=== PATIENT | male | born 1990 | race Caucasian/White ===

== ENCOUNTER 2018-01-03 00:39 | Emergency (ER) | payer OTHER ==
[~2018-01-03] VITALS: Ht 180.3 cm; Wt 75.0 kg
[2018-01-03 00:57] VITALS: BP 100/53; PULSE 60; RESP 16; TEMP 97.8; O2SAT 100
[2018-01-03 01:45] VITALS: BP_SYST 100; BP_SYST 94; BP_SYST 95; BP_DIAS 49; BP_DIAS 51; BP_DIAS 65
[2018-01-03] MEDS ORDERED: SODIUM CHLOR 0.9% 1000 ML INJ 1,000 ML IV ONE (01:45)
[2018-01-03] MEDS ORDERED: SODIUM CHLORIDE 0.9% FLUSH 10 ML FLUSH IVF PRN (01:45)
[2018-01-03 01:55] LABS: AUTOMATED NEUTROPHIL # 4.9 TH/MM3 (1.8-7.7); BASOPHIL % 0.4 % (0.0-2.0); EOSINOPHIL # 0.3 TH/MM3 (0-0.4); EOSINOPHIL % 3.1 % (0.0-4.0); HEMOGLOBIN 13.4 GM/DL (13.0-17.0); LYMPH % 35.4 % (9.0-44.0); LYMPHOCYTE # 3.2 TH/MM3 (1.0-4.8); MEAN CELL VOLUME 92.9 FL (80.0-100.0); MEAN CORPUSCULAR HGB CONC 34.5 % (32.0-36.0); MEAN PLATELET VOLUME 7.6 FL (7.0-11.0); MONO % 6.9 % (0.0-8.0); MONOCYTE # 0.6 TH/MM3 (0-0.9); NEUT % 54.2 % (16.0-70.0); PLATELET COUNT 262 TH/MM3 (150-450)
--- NOTE | 2018-01-03 01:58 | PD ---
HPI Chief Complaint: Syncope/Near-Syncope Time Seen by Provider: 01:17 Travel History International Travel<30 days: No Contact w/Intl Traveler<30days: No Traveled to known affect area: No History of Present Illness HPI The patient is a 27-year-old male who presents to the emergency department after syncopal episode. The patient recently had an incision and drainage of an abscess behind the left ear performed in the packing was still in place. The patient's remove the packing at home and the patient suddenly fell air going to the wound, had some pain, and then passed out according to the . The patient states he was diaphoretic and slightly nauseated. When he awakened immediately knew his surroundings. He denies any injuries during the syncopal episode. He denies any history of previous syncope. He denied any chest pain, palpitations, shortness of breath prior to the event. He denied any tongue biting or urinary incontinence. He denies any known history of arrhythmias. Symptoms are moderate. There were no alleviating factors, possibly exacerbated by acute onset of pain after packing was removed for the ear abscess. The patient is currently on clindamycin for the abscess. [facility] Past Medical History Medical History: Denies Significant Hx Diminished Hearing: No Influenza Vaccination: No Past Surgical History Surgical History: No Previous Surgery Social History Alcohol Use: Yes ([facility]) Tobacco Use: No Substance Use: No Allergies-Medications (Allergen,Severity, Reaction): Coded Allergies: No Known Allergies (Unverified , 01/03/18) Review of Systems Except as stated in HPI: all other systems reviewed are Neg HENT: No: Lightheadedness Cardiovascular: Positive: Diaphoresis, Syncope, No: Chest Pain or Discomfort, Palpitations, Irregular Rhythm, Tachycardia Respiratory: No: Shortness of Breath Gastrointestinal: Positive: Nausea, No: Vomiting, Abdominal Pain Neurologic: Positive: Syncope, No: Weakness, Dizziness, Focal Abnormalities Physical Exam Narrative GENERAL: 27-year-old male who appears his stated age and is in no acute respiratory distress. SKIN: Focused skin assessment warm/dry. HEAD: Atraumatic. Normocephalic. EYES: Pupils equal and round. Pupils are 4 mm bilateral and reactive. EOMs are intact. ENT: No nasal bleeding or discharge. Mucous membranes pink and moist. Abscess behind the left ear does reveal a small opening approximately 1 cm in length with mild surrounding induration but no visible drainage. NECK: Trachea midline. No JVD. CARDIOVASCULAR: Regular rate and rhythm. No murmur appreciated. RESPIRATORY: No accessory muscle use. Clear to auscultation. Breath sounds equal bilaterally. GASTROINTESTINAL: Abdomen soft, non-tender, nondistended. No rebound tenderness. MUSCULOSKELETAL: No obvious deformities. No clubbing. No cyanosis. No edema. NEUROLOGICAL: Awake and alert. No obvious cranial nerve deficits. Motor grossly within normal limits. Normal speech. Nonfocal. Oriented 4. Follows commands without difficulty. PSYCHIATRIC: Appropriate mood and affect; insight and judgment normal. Data Data Last Documented VS Vital Signs Date Time Temp Pulse Resp B/P (MAP) Pulse Ox O2 Delivery O2 Flow Rate FiO2 01/03/18 01:45 52 94/49 (64) 56 95/51 (66) 56 100/65 (77) 01/03/18 00:57 97.8 16 100 Orders Orders Electrocardiogram (01/03/18 01:35) Complete Blood Count With Diff (01/03/18 01:35) Comprehensive Metabolic Panel (01/03/18 01:35) Magnesium (Mg) (01/03/18 01:35) Ecg Monitoring (01/03/18 01:35) Iv Access Insert/Monitor (01/03/18 01:35) Oximetry (01/03/18 01:35) Sodium Chloride 0.9% Flush (Ns Flush) (01/03/18 01:45) Orthostatic Vital Signs (01/03/18 01:35) Sodium Chlor 0.9% 1000 Ml Inj (Ns 1000 M (01/03/18 01:45) Labs Laboratory Tests Test 01/03/18 01:10 White Blood Count 9.0 TH/MM3 Red Blood Count 4.20 MIL/MM3 Hemoglobin 13.4 GM/DL Hematocrit 39.0 % Mean Corpuscular Volume 92.9 FL Mean Corpuscular Hemoglobin 32.0 PG Mean Corpuscular Hemoglobin Concent 34.5 % Red Cell Distribution Width 13.0 % Platelet Count 262 TH/MM3 Mean Platelet Volume 7.6 FL Neutrophils (%) (Auto) 54.2 % Lymphocytes (%) (Auto) 35.4 % Monocytes (%) (Auto) 6.9 % Eosinophils (%) (Auto) 3.1 % Basophils (%) (Auto) 0.4 % Neutrophils # (Auto) 4.9 TH/MM3 Lymphocytes # (Auto) 3.2 TH/MM3 Monocytes # (Auto) 0.6 TH/MM3 Eosinophils # (Auto) 0.3 TH/MM3 Basophils # (Auto) 0.0 TH/MM3 CBC Comment DIFF FINAL Differential Comment Blood Urea Nitrogen 15 MG/DL Creatinine 0.75 MG/DL Random Glucose 89 MG/DL Total Protein 6.5 GM/DL Albumin 3.5 GM/DL Calcium Level 7.9 MG/DL Magnesium Level 2.1 MG/DL Alkaline Phosphatase 70 U/L Aspartate Amino Transf (AST/SGOT) 31 U/L Alanine Aminotransferase (ALT/SGPT) 21 U/L Total Bilirubin 0.2 MG/DL Sodium Level 144 MEQ/L Potassium Level 4.1 MEQ/L Chloride Level 110 MEQ/L Carbon Dioxide Level 26.2 MEQ/L Anion Gap 8 MEQ/L Estimat Glomerular Filtration Rate 123 ML/MIN [facility] Medical Decision Making Medical Screen Exam Complete: Yes Emergency Medical Condition: Yes Medical Record Reviewed: Yes Interpretation(s) EKG reveals sinus bradycardia with a heart rate of 57. No ischemic changes or ectopy noted. No evidence of WPW or Brugada syndrome. Laboratory Tests Test 01/03/18 01:10 White Blood Count 9.0 TH/MM3 Red Blood Count 4.20 MIL/MM3 Hemoglobin 13.4 GM/DL Hematocrit 39.0 % Mean Corpuscular Volume 92.9 FL Mean Corpuscular Hemoglobin 32.0 PG Mean Corpuscular Hemoglobin Concent 34.5 % Red Cell Distribution Width 13.0 % Platelet Count 262 TH/MM3 Mean Platelet Volume 7.6 FL Neutrophils (%) (Auto) 54.2 % Lymphocytes (%) (Auto) 35.4 % Monocytes (%) (Auto) 6.9 % Eosinophils (%) (Auto) 3.1 % Basophils (%) (Auto) 0.4 % Neutrophils # (Auto) 4.9 TH/MM3 Lymphocytes # (Auto) 3.2 TH/MM3 Monocytes # (Auto) 0.6 TH/MM3 Eosinophils # (Auto) 0.3 TH/MM3 Basophils # (Auto) 0.0 TH/MM3 CBC Comment DIFF FINAL Differential Comment Blood Urea Nitrogen 15 MG/DL Creatinine 0.75 MG/DL Random Glucose 89 MG/DL Total Protein 6.5 GM/DL Albumin 3.5 GM/DL Calcium Level 7.9 MG/DL Magnesium Level 2.1 MG/DL Alkaline Phosphatase 70 U/L Aspartate Amino Transf (AST/SGOT) 31 U/L Alanine Aminotransferase (ALT/SGPT) 21 U/L Total Bilirubin 0.2 MG/DL Sodium Level 144 MEQ/L Potassium Level 4.1 MEQ/L Chloride Level 110 MEQ/L Carbon Dioxide Level 26.2 MEQ/L Anion Gap 8 MEQ/L Estimat Glomerular Filtration Rate 123 ML/MIN Differential Diagnosis Differential diagnosis includes vasovagal syncope, arrhythmia, pain reaction, dehydration, neurogenic syncope, seizure, electrolyte abnormality. Narrative Course IV was established, labs are drawn and sent, and the patient was placed on cardiac telemetry monitoring and continuous pulse oximetry monitoring. EKG was ordered and interpreted. Orthostatic vital signs were obtained. The patient was administered 1 L of IV fluids. Orthostatic vital signs are unremarkable. Labs are unremarkable. The patient is currently asymptomatic. EKG reveals no evidence of WPW or Brugada syndrome. Patient is stable for outpatient follow- up. Diagnosis Primary Impression: Vasovagal syncope Patient Instructions: General Instructions Additional Instructions: Please provide the patient a copy of his labs and EKG at discharge. Follow-up with your primary physician. Return if symptoms worsen or progress. Med/Other Pt SpecificInfo: No Change to Meds Disposition: 01 DISCHARGE HOME Condition: Stable Mina Boyle MD Jan 03, 2018 01:58
[2018-01-03 02:14] LABS: ALKALINE PHOSPHATASE 70 U/L (45-117); TOTAL BILIRUBIN ADULT 0.2 MG/DL (0.2-1.0); TOTAL PROTEIN 6.5 GM/DL (6.4-8.2)
[2018-01-03 02:15] LABS: ALBUMIN 3.5 GM/DL (3.4-5.0); ALT (GPT) 21 U/L (12-78); AST (GOT) 31 U/L (15-37); BICARBONATE 26.2 MEQ/L (21.0-32.0); BLOOD UREA NITROGEN 15 MG/DL (7-18); CALCIUM 7.9 MG/DL (8.5-10.1); CHLORIDE 110 MEQ/L (98-107); CREATININE 0.75 MG/DL (0.60-1.30); GLOMERULAR FILTRATION RATE 123 ML/MIN (>89); GLUCOSE,RANDOM 89 MG/DL (74-106); MAGNESIUM 2.1 MG/DL (1.5-2.5); SODIUM (NA) 144 MEQ/L (136-145)
--- NOTE | 2018-01-03 18:32 | EKG ---
Date Performed: 01/03/2018 Time Performed: 01:52:32 PTAGE: 27 years EKG: SINUS BRADYCARDIA BORDERLINE ECG Early reploraziation noted.Consider pericarditis.Clinical correlation is recommended NO PREVIOUS TRACING DOCTOR: Luis Eduardo Wiggins Interpretating Date/Time 01/03/2018 18:31:18
== END 2018-01-03 03:23 | disposition home or self-care (01) ==
LOC: NEPE 00:39
DX: R55 Syncope and collapse (principal); R94.31 Abnormal electrocardiogram [ECG] [EKG]
CPT/HCPCS: 80053; 83735; 85025; 93005; 99284; J7030